=== PATIENT | female | born 1940 | race Caucasian/White ===

== ENCOUNTER → 2019-08-25 11:26 | Outpatient (BNVA) | payer MEDICARE, MEDICAID, SELFPAY | PROVIDERS: Family Provider Nurse Practitioner Family; PCP Family Medicine; Visit Provider Nurse Practitioner | DX: F33.0 Major depressive disorder, recurrent, mild (principal) | CPT/HCPCS: 99203 ==

== ENCOUNTER → 2019-11-24 08:12 | Outpatient (BNVA) | payer MEDICARE, MEDICAID, SELFPAY | PROVIDERS: Family Provider Nurse Practitioner Family; PCP Family Medicine; Visit Provider Nurse Practitioner | DX: F33.0 Major depressive disorder, recurrent, mild (principal) | CPT/HCPCS: 99213 ==

== ENCOUNTER → 2020-02-23 08:30 | Outpatient (BNVA) | payer MEDICARE, MEDICAID, SELFPAY | PROVIDERS: Family Provider Nurse Practitioner Family; PCP Family Medicine; Visit Provider Nurse Practitioner | DX: F33.0 Major depressive disorder, recurrent, mild (principal) | CPT/HCPCS: 99213 ==

== ENCOUNTER → 2020-05-24 08:13 | Outpatient (BNVA) | payer MEDICARE, MEDICAID, SELFPAY | PROVIDERS: Family Provider Nurse Practitioner Family; PCP Family Medicine; Visit Provider Nurse Practitioner | DX: F33.0 Major depressive disorder, recurrent, mild (principal) | CPT/HCPCS: 99213 ==

== ENCOUNTER → 2020-08-18 08:53 | Outpatient (BNVA) | payer MEDICARE, MEDICAID, SELFPAY | PROVIDERS: Family Provider Nurse Practitioner Family; PCP Family Medicine; Visit Provider Nurse Practitioner | DX: F33.0 Major depressive disorder, recurrent, mild (principal) | CPT/HCPCS: 99214 ==

== ENCOUNTER → 2020-11-10 07:22 | Outpatient (BNVA) | payer MEDICARE, MEDICAID, SELFPAY | PROVIDERS: Family Provider Nurse Practitioner Family; PCP Family Medicine; Visit Provider Nurse Practitioner | DX: F33.0 Major depressive disorder, recurrent, mild (principal) | CPT/HCPCS: 99214 ==

== ENCOUNTER → 2021-02-02 12:42 | Outpatient (BNVA) | payer MEDICARE, MEDICAID, SELFPAY | PROVIDERS: Family Provider Nurse Practitioner Family; PCP Family Medicine; Visit Provider Nurse Practitioner | DX: F33.0 Major depressive disorder, recurrent, mild (principal) | CPT/HCPCS: 99214 ==

== ENCOUNTER → 2021-05-03 12:49 | Outpatient (BNVA) | payer MEDICARE, MEDICAID, SELFPAY | PROVIDERS: Family Provider Nurse Practitioner Family; PCP Family Medicine; Visit Provider Nurse Practitioner | DX: F33.0 Major depressive disorder, recurrent, mild (principal) | CPT/HCPCS: 99214 ==

== ENCOUNTER → 2021-08-02 12:45 | Outpatient (BNVA) | payer MEDICARE, MEDICAID, SELFPAY | PROVIDERS: Family Provider Nurse Practitioner Family; PCP Family Medicine; Visit Provider Nurse Practitioner | DX: F33.0 Major depressive disorder, recurrent, mild (principal) | CPT/HCPCS: 99214 ==

== ENCOUNTER → 2021-11-04 10:20 | Outpatient (BNVA) | payer MEDICARE, MEDICAID, SELFPAY | PROVIDERS: Family Provider Nurse Practitioner Family; PCP Family Medicine; Visit Provider Nurse Practitioner | DX: F33.0 Major depressive disorder, recurrent, mild (principal) | CPT/HCPCS: 99214 ==